=== PATIENT | male | born 1995 | race Caucasian/White ===

== ENCOUNTER 2018-05-15 06:50 | Emergency (ER) | payer OTHER ==
[~2018-05-15] VITALS: Ht 182.9 cm; Wt 154.2 kg
[~2018-05-15 06:50] MED LIST: AMOXICILLIN 50500 MG PO; LIDOCAINE VISC100 M1 MM; SERTRALINE HCL100 MG; ZOFRAN ODT4 MG PO
[2018-05-15] MEDS ORDERED: TESSALON PERLE100 MG PO (06:57)
[2018-05-15] MEDS ORDERED: ALBUTEROL2.5 MG/31 INH (06:57)
[2018-05-15] MEDS ORDERED: AZITHROMYCIN 2250 MG PO (06:57)
[2018-05-15] MEDS ORDERED: PREDNISONE 10 M10 MG PO (06:58)
[2018-05-15] MEDS ORDERED: IPRAT-ALBUT 0.5-3 ML PO (08:31)
[2018-05-15 08:38] VITALS: BP 121/76
== END 2018-05-15 08:38 | disposition home or self-care (01) ==
LOC: M.ERS 06:50
DX: J45.901 Unspecified asthma with (acute) exacerbation (principal); F17.200 Nicotine dependence, unspecified, uncomplicated; Z88.8 Allergy status to other drugs, medicaments and biological substances

== ENCOUNTER 2018-05-20 09:51 | Emergency (ER) | payer OTHER ==
[~2018-05-20] VITALS: Ht 182.9 cm; Wt 154.2 kg
[~2018-05-20 09:51] MED LIST changes: +ALBUTEROL2.5 MG/31 INH; +AZITHROMYCIN 2250 MG PO; +IPRAT-ALBUT 0.5-3 ML PO; +PREDNISONE 10 M10 MG PO; +TESSALON PERLE100 MG PO
[2018-05-20] MEDS ORDERED: IPRAT-ALBUT 0.5-3 ML PO (12:09)
[2018-05-20 12:10] VITALS: BP 157/130
== END 2018-05-20 12:10 | disposition home or self-care (01) ==
LOC: M.ERS 09:51
DX: J45.901 Unspecified asthma with (acute) exacerbation (principal); Z88.8 Allergy status to other drugs, medicaments and biological substances

== ENCOUNTER 2021-07-13 14:04 | Emergency (ER) | payer OTHER ==
[~2021-07-13] VITALS: Ht 182.9 cm; Wt 113.4 kg
[2021-07-13] MEDS ORDERED: SUBOXONE 4 MG-1 EACH SUBLING (19:24)
[2021-07-13 19:30] VITALS: BP 140/89
== END 2021-07-13 19:30 | disposition home or self-care (01) ==
LOC: M.ERS 14:04
DX: F31.9 Bipolar disorder, unspecified (principal); J45.909 Unspecified asthma, uncomplicated; Z79.899 Other long term (current) drug therapy; Z88.8 Allergy status to other drugs, medicaments and biological substances

== ENCOUNTER 2021-07-17 10:57 | Inpatient (IN) | payer OTHER ==
[~2021-07-17] VITALS: Ht 182.9 cm; Wt 113.4 kg
[~2021-07-17 10:57] MED LIST changes: +SUBOXONE 4 MG-1 EACH SUBLING
[2021-07-17 11:11] VITALS: BP 128/75
[2021-07-17] MEDS ORDERED: VRAYLAR1.5 MG PO (11:13)
[2021-07-17 13:12] LABS: ABSOLUTE BASOPHILS 0.1 thou/uL (0.0-0.2); ABSOLUTE EOSINOPHILS 0.2 thou/uL (0.0-0.7); ABSOLUTE LYMPHOCYTES 1.5 thou/uL (0.8-5.3); ABSOLUTE MONOCYTES 0.7 thou/uL (0.0-1.2); ABSOLUTE NEUTROPHILS 4.8 thou/uL (1.6-8.1); BASOPHILS 0.9 %; EOSINOPHILS 2.2 %; HEMATOCRIT 39.6 % (42.0-52.0); HEMOGLOBIN 13.5 gm/dL (14.0-18.0); LYMPHOCYTES 20.4 %; MCH 32.1 pg (26.0-34.0); MCHC 34.2 g/dL (28.0-37.0); MCV 93.8 fL (80.0-100.0); MONOCYTES 9.6 %; MPV 7.7 fl. (7.2-11.1); NUCLEATED RBCS 0 /100WBC; PLATELET COUNT* 156 thou/uL (150-400); POLYS 66.9 %; RBC 4.22 mil/uL (4.50-6.00); RDW-CV 13.2 % (10.5-14.5); WBC 7.1 thou/uL (4.0-11.0)
[2021-07-17 13:28] LABS: APTT 27.1 Seconds (25.0-31.3); INR 1.1; PROTIME 11.1 Seconds (9.20-11.50)
[2021-07-17 13:29] LABS: CALCIUM 7.9 mg/dL (8.5-10.1); CREATININE 0.7 mg/dL (0.6-1.3); POTASSIUM 3.8 mmol/L (3.5-5.1)
[2021-07-17 13:34] LABS: ALBUMIN 2.9 g/dL (3.4-5.0); TOTAL BILIRUBIN 0.4 mg/dL (<0.1-1.0); TOTAL PROTEIN 6.1 g/dL (6.4-8.2)
[2021-07-17 14:36] LABS: URINE BILIRUBIN NEGATIVE (Negative); URINE BLOOD NEGATIVE (Negative); URINE CLARITY CLEAR; URINE COLOR YELLOW; URINE GLUCOSE-RANDOM NEGATIVE (Negative); URINE KETONES NEGATIVE (Negative); URINE LEUKOCYTES NEGATIVE (Negative); URINE NITRITE NEGATIVE (Negative); URINE PROTEIN NEGATIVE (Negative)
[2021-07-17 15:22] LABS: AMP/METHAMP Negative (Negative); BARBITURATES Negative (Negative); BENZODIAZEPINES Negative (Negative); COCAINE Negative (Negative); METHADONE Negative (Negative); OPIATES Negative (Negative); PCP Negative (Negative); THC POSITIVE (Negative)
[2021-07-17 19:30] VITALS: BP 99/55
[2021-07-17 23:30] VITALS: BP 100/52
[2021-07-18 03:26] VITALS: BP 100/52
[2021-07-18 07:26] VITALS: BP 101/85
[2021-07-18 11:26] VITALS: BP 95/55
[2021-07-18 15:26] VITALS: BP 92/59
--- NOTE | 2021-07-18 15:43 | NUR ---
CM ATTEMTED TO MEET WITH PT TO CONDUCT ASSESSMENT, BUT WAS UNABLE TO MAKE CONTACT VIA PHONE AND PT NOT IN ROOM. CM TO FOLLOWUP.
--- NOTE | 2021-07-18 15:57 | 2DMMODE ---
[place] [address] 2 D/M-MODE ECHOCARDIOGRAM Name: SANDOR KNIGHT Room: [place] [address] ADM [place]#: [id number] Admission: 07/17/21 Attend Phys: Temo Pena Discharge: Date of : 89 Date of Service: 07/18/21 1556 Report #: [id number] THIS REPORT FOR: cc: FAM - No family physician/PCP FAM - No family physician/PCP Pierre Anthony MD [facility] ~ APPROVED REPORT Study performed: 07/18/2021 13:47:32 EXAM: Comprehensive 2D, Doppler, and color-flow Echocardiogram Patient Location: In-Patient Room #: er Status: routine BSA: 2.34 HR: 77 bpm BP: 101/85 mmHg Rhythm: NSR Other Information Study Quality: Good Indications Pulmonary Embolism 2D Dimensions IVSd: 9.08 (7-11mm) LVOT Diam: 23.13 (18-24mm) LVDd: 50.18 mm PWd: 7.58 (7-11mm) Ascending Ao: 29.31 (22-36mm) LVDs: 30.11 (25-40mm) Aortic Root: 31.79 mm Volumes Left Atrial Volume (Systole) LA ESV Index: 24.80 mL/m2 Aortic Valve AoV Peak Kt.: 1.34 m/s AO Peak Gr.: 7.16 mmHg LVOT Max P.00 mmHg AO Mean Gr.: 4.10 mmHg LVOT Mean P.06 mmHg LVOT Max V: 0.71 m/s AO V2 VTI: 24.85 cm LVOT Mean V: 0.48 m/s ROMY (VTI): 2.78 cm2 LVOT V1 VTI: 16.42 [place] [address] 2 D/M-MODE ECHOCARDIOGRAM Name: SANDOR KNIGHT Room: [address] IN [facility]#: [id number] Admission: 07/17/21 Attend Phys: Temo Pena Discharge: Date of : 89 Date of Service: 07/18/21 1556 Report #: [id number] Mitral Valve E/A Ratio: 1.35 MV Decel. Time: 245.74 ms MV E Max Kt.: 0.87 m/s MV PHT: 71.26 ms MVA (PHT): 3.09 cm2 TDI E/Lateral E': 3.78 E/Medial E': 5.44 Medial E' Kt.: 0.16 m/s Lateral E' Kt.: 0.23 m/s Pulmonary Valve PV Peak Kt.: 0.98 m/s PV Peak Gr.: 3.85 mmHg Tricuspid Valve RAP Estimate: 5.00 mmHg TR Peak Gr.: 21.04 mmHg RVSP: 26.00 mmHg PA Pressure: 26.00 mmHg Left Ventricle The left ventricle is normal size. There is normal LV segmental wall motion. There is normal left ventricular wall thickness. Left ventricular systolic function is normal. The left ventricular ejection fraction is within the normal range. LVEF is 55-60%. The left ventricular diastolic function is normal. Right Ventricle The right ventricle is normal size. The right ventricular systolic function is normal. Atria The left atrium size is normal. The right atrium size is normal. Aortic Valve The aortic valve is normal in structure. Trace aortic regurgitation. There is no aortic valvular stenosis. Mitral Valve The mitral valve is normal in structure. There is no mitral valve regurgitation noted. No evidence of mitral valve stenosis. Tricuspid Valve The tricuspid valve is normal in structure. Mild tricuspid regurgitation. [place] [address] 2 D/M-MODE ECHOCARDIOGRAM Name: SANDOR KNIGHT Room: [address] IN [facility]#: [id number] Admission: 07/17/21 Attend Phys: Temo Pena Discharge: Date of : 89 Date of Service: 07/18/21 1556 Report #: [id number] Pulmonic Valve The pulmonary valve is normal in structure. There is mild pulmonic valvular regurgitation. Great Vessels The aortic root is normal in size. IVC is not well visualized. Pericardium There is no pericardial effusion. <Conclusion> LVEF is 55-60%. Trace aortic regurgitation. Mild tricuspid regurgitation. No pulmonary hypertension. <ELECTRONICALLY SIGNED> By: Pierre Anthony MD, [facility] 07/18/21 1556 1556 1556 Pierre Anthony MD, FACC /INF
[2021-07-18 20:00] VITALS: BP 100/62; BP 102/62
[2021-07-19] VITALS: BP 104/54
[2021-07-19 04:00] VITALS: BP 118/80
--- NOTE | 2021-07-19 04:03 | NUR ---
PATIENT UP FROM ER AT APPROX 2030. PT ALERT/ORIENTED X4 AND UP AD NIK. PT DENIES PAIN/NAUSEA. PT'S HEPARIN DRIP COMPLETED AND XERALTO GIVEN ORDERED. PT WITH SALINE LOCK IN LT HAND AND IS ON ROOM AIR. PT NPO SINCE MIDNIGHT FOR ECHO TODAY. FREQUENTLY USED ITEMS AND CALL LIGHT WITHIN REACH. SIDERAILS UPX2. WILL CONTINUE TO MONITOR.
[2021-07-19 08:00] VITALS: BP 94/50
[2021-07-19] MEDS ORDERED: XARELTO15 MG PO (11:12)
[2021-07-19 11:32] VITALS: BP 94/50
--- NOTE | 2021-07-19 12:41 | NUR ---
ASSUMED PT CARE AT 0730, PT AOX4, NO C/O PAIN, HAD ECHO YESTERDAY AND CLEARED FOR DC. IV REMOVED. PT DC'D BY WC W/ NURSING STAFF AND ALL PAPERWORK AND BELONGINGS AND XARALTO SAMPLES TO FRIEND'S VEHICLE AT APPROX 1215
== END 2021-07-19 12:15 | disposition home or self-care (01) | DRG 299 ==
LOC: M.ERS 10:57 → M.TBA-ER 14:49 → M.2W 07-18 20:33
PROVIDERS: Physician Assistant; ADMIT Internal Medicine; ATTEND Internal Medicine
DX: I82.452 Acute embolism and thrombosis of left peroneal vein (principal); I26.94 Multiple subsegmental thrombotic pulmonary emboli without acute cor pulmonale; I82.432 Acute embolism and thrombosis of left popliteal vein; I82.412 Acute embolism and thrombosis of left femoral vein; Z20.822 Contact with and (suspected) exposure to COVID-19; E66.9 Obesity, unspecified; Z68.33 Body mass index [BMI] 33.0-33.9, adult; Z88.8 Allergy status to other drugs, medicaments and biological substances; Z87.891 Personal history of nicotine dependence; F31.9 Bipolar disorder, unspecified; Z71.6 Tobacco abuse counseling